=== PATIENT | female | born 1970 | race Hispanic/Latino ===

== ENCOUNTER 2025-01-15 20:41 | Emergency (ER) | payer SELFPAY ==
[~2025-01-15] VITALS: Ht 167.6 cm; Wt 90.7 kg
[2025-01-15 20:41] VITALS: TEMP 98
[2025-01-15 21:17] LABS: BASOPHILS % 0.3 % (0.0-1.0); EOSINOPHILS % 2.0 % (0.0-6.0); LYMPHOCYTES % 48.6 % (18.0-39.1); MONOCYTES % 7.8 % (4.4-11.3); NEUTROPHILS % 41.2 % (38.7-80.0); RED CELL DISTRIBUTION WIDTH 11.9 % (11.7-14.4)
[2025-01-15 21:31] LABS: EST GLOMERULAR FILTRATION RATE 62.0 ML/MIN (>=60)
[2025-01-15] MEDS: KETOROLAC TROMETHAMINE 30 MG/ML VIAL IV STA (22:01)
[2025-01-15 22:19] LABS: LEUKOCYTE ESTERASE ,URINE NEGATIVE (NEGATIVE); PROTEIN,URINE DIPSTICK NEGATIVE (NEGATIVE)
[2025-01-15 22:20] LABS: AMPHETAMINES SCREEN,URINE NEGATIVE (NEGATIVE); CANNABINOIDS SCREEN,URINE NEGATIVE (NEGATIVE); COCAINE SCREEN,URINE NEGATIVE (NEGATIVE); METHADONE SCREEN, URINE NEGATIVE (NEGATIVE); OPIATES SCREEN,URINE NEGATIVE (NEGATIVE); URINE UROBILINOGEN 1 mg/dL (0.2 - 1)
[2025-01-15 23:01] LABS: EPITHELIAL CELLS,URINE MODERATE /LPF
[2025-01-16 00:19] VITALS: PULSE 72; RESP 18
[2025-01-16] MEDS: ONDANSETRON HCL INJ 2MG/ML 2ML 2 MG/ML VIAL IV STA (00:21)
[2025-01-16] MEDS: Morphine 4mg INJECTION 4 MG/ML INJ IV STA (00:24)
[2025-01-16] MEDS ORDERED: IOPAMIDOL 370 MG/ML 100 ML INFUS..BTL INJ ONE (01:14)
[2025-01-16 01:40] VITALS: BP 131/64; PULSE 78; RESP 14; O2SAT 98
[2025-01-16] MEDS ORDERED: ULTRAM 50MG50 MG PO (18:53)
== END 2025-01-16 01:28 | disposition home or self-care (01) ==
LOC: ER 20:45
DX: R06.02 Shortness of breath (principal); R07.89 Other chest pain; R41.0 Disorientation, unspecified; I10 Essential (primary) hypertension; R94.31 Abnormal electrocardiogram [ECG] [EKG]
CPT/HCPCS: 36415; 70450; 71045; 71260; 80053; 80307; 80320; 81001; 82550; 82948; 83690; 83880; 84484; 85025; 93005; 99284; J1885; J2270; J2405; Q9967